=== PATIENT | male | born 1925 | race Caucasian/White ===

== ENCOUNTER 2016-04-11 00:05 | Observation (INO) | payer MEDICARE ==
[2016-04-11 00:38] LABS: Basophils % (A) 0 %; CH 31.9; CHCM 33.5; Eosinophils # (A) 0.2 k/uL (0-0.7); Eosinophils % (A) 2 %; HCT 43.7 % (39.0-53.0); HDW 2.55; HGB 14.4 gm/dL (13.0-17.5); Luc # (Auto) 0.16; Luc % (Auto) 2; Lymphocytes # (A) 0.8 k/uL (1.0-4.8); Lymphocytes % (A) 10 %; MCH 31.4 pg (25.0-35.0); MCHC 32.9 g/dL (31.0-37.0); MCV 95.6 fL (80.0-100.0); Mean Platelet Volume 7.3; Monocytes # (A) 0.6 k/uL (0-1.0); Monocytes % (A) 7 %; Neutrophils # (A) 6.8 k/uL (1.3-7.7); Neutrophils % (A) 80 %; RBC 4.57 m/uL (4.30-5.90); RDW 13.5 % (11.5-15.5); WBC 8.5 k/uL (3.8-10.6); WBC (Perox) 8.61
[2016-04-11 00:47] LABS: ALT 30 U/L (21-72); AST 30 U/L (17-59); Alkaline Phosphatase 97 U/L (38-126); Anion Gap 13 mmol/L; Blood Urea Nitrogen 14 mg/dL (9-20); Calcium 8.6 mg/dL (8.4-10.2); Carbon Dioxide 24 mmol/L (22-30); Chloride 101 mmol/L (98-107); Glucose 130 mg/dL (74-99); Non-African American GFR(MDRD) >60 (>60 ml/min/1.73 sqM); Potassium 3.6 mmol/L (3.5-5.1); Sodium 138 mmol/L (137-145); Total Bilirubin 1.4 mg/dL (0.2-1.3); Total Protein 6.4 g/dL (6.3-8.2)
[2016-04-11 00:55] LABS: INR 1.2 (<1.1); Partial Thromboplastin Time 28.1 sec (22.0-30.0); Prothrombin Time 11.5 sec (9.0-12.0)
[2016-04-11 00:59] LABS: Glucose,Whole Blood 124 mg/dL (75-99)
--- NOTE | 2016-04-11 01:05 | XR ---
EXAM: XR Chest. CLINICAL HISTORY: Reason: altered mental status TECHNIQUE: 2 portable AP upright views of the chest. COMPARISON: No relevant prior studies available. FINDINGS: Lungs: Mildly prominent indistinct pulmonary vascular markings. Together with small bilateral pleural effusions suggest the presence of mild CHF. There is probable patchy atelectasis underlying this at both lung bases. Pleural spaces: See above. Heart: Mild enlargement of the cardiomediastinal silhouette, probably a combination of cardiomegaly and aortic ectasia. The tracheal air column is slightly shifted towards the right, perhaps related to this. Mediastinum: See above. Bones: Degenerative changes. No acute fracture. IMPRESSION: 1. Mild CHF. Follow-up recommended, to ensure clearing. 2. Mild rightward deviation of the trachea which may be on the basis of vascular ectasia. If no priors, this can be reassessed at time of follow- up radiographs or by elective CT.
[2016-04-11] MEDS ORDERED: OSELTAMIVIR 75 MG CAP PO STA (04:07)
[2016-04-11] MEDS ORDERED: NALOXONE 0.4 MG/ML 1 ML VIAL IV PRN (04:11)
[2016-04-11] MEDS ORDERED: ACETAMINOPHEN TAB 325 MG TAB PO PRN (04:11)
--- NOTE | 2016-04-11 04:11 | ED ---
Altered Mental Status HPI - General Chief Complaint: Altered Mental Status Stated Complaint: Altered Mental Status Time Seen by Provider: 04/11/16 00:13 Source: EMS Mode of arrival: EMS Limitations: no limitations - History of Present Illness Initial Comments: This patient is an 89-year-old man [facility] to be evaluated for reportedly being combative. Patient reportedly was confrontational at the [facility] and had a fever. He also is reported to have had a Roche catheter in and then pulled this out, resulting in some bloody drainage from the urethra which did eventually stop. On arrival, the patient is not able to provide much history due to out appears to be some underlying dementia or possibly delirium. The patient does however deny pain or dyspnea. MD Complaint: altered mental status, confusion, other -: hour(s) Severity: severe - Related Data Home Medications Medication Instructions Recorded Confirmed Aspirin 04/11/16 Docusate [Colace] 04/11/16 Famotidine [Pepcid] 04/11/16 Folic Acid 04/11/16 Furosemide [Lasix] 04/11/16 HYDROcodone/APAP 10-325MG [[place] 04/11/16 10-325] Ipratropium-Albuterol Nebulize 04/11/16 [Duoneb 0.5 mg-3 mg/3 ml Soln] LORazepam [Ativan] 04/11/16 04/11/16 Lidocaine [Lidoderm 5% Patch] 04/11/16 Methocarbamol [Robaxin-750] 04/11/16 Metoprolol Succinate (ER) [Toprol 04/11/16 XL] Multivitamin [Men's Multi-Vitamin] 04/11/16 Nitroglycerin 04/11/16 Sennosides [Senna] 04/11/16 Simvastatin [Zocor] 04/11/16 Tamsulosin HCl [Flomax] 04/11/16 Thiamine [Vitamin B-1] 04/11/16 hydrALAZINE HCL 04/11/16 Allergies Allergy/AdvReac Type Severity Reaction Status Date / Time naproxen [From Naprosyn] Allergy Unknown Verified 04/11/16 00:41 Review of Systems ROS Statement: Those systems with pertinent positive or pertinent negative responses have been documented in the HPI. ROS Other: All systems not noted in ROS Statement are negative. Limitations: ROS unobtainable due to patients medical condition Respiratory: Reports: cough. 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 Absent: scleral icterus, conjunctival injection ENT exam: Present: mucous membranes dry Neck exam: Present: normal inspection, full ROM. Absent: tenderness, meningismus Respiratory exam: Present: rhonchi. Absent: respiratory distress, wheezes, rales, stridor Cardiovascular Exam: Present: irregular rhythm, normal heart sounds. Absent: systolic murmur, diastolic murmur, rubs, gallop GI/Abdominal exam: Present: soft. Absent: distended, tenderness, guarding, rebound, rigid Extremities exam: Present: normal inspection, normal capillary refill. Absent: pedal edema, calf tenderness Back exam: Absent: CVA tenderness (R), CVA tenderness (L) Neurological exam: Present: alert, CN II-XII intact. Absent: oriented X3 ( Patient is oriented only to person), motor sensory deficit Skin exam: Present: warm, dry, intact, normal color. Absent: rash Course Vital Signs 04/11/16 04/11/16 04/11/16 00:07 00:50 01:26 Temperature 98.1 F Pulse Rate 103 H 93 103 H Respiratory 18 18 Rate Blood Pressure 172/81 142/86 160/91 O2 Sat by Pulse 94 L 93 L 96 Oximetry 04/11/16 04/11/16 04:01 05:51 Temperature 98.4 F Pulse Rate 101 H 94 Respiratory 20 20 Rate Blood Pressure 171/110 121/69 O2 Sat by Pulse 95 95 Oximetry Medical Decision Making - Medical Decision Making This patient is an 89-year-old man [facility] status as well as being confrontational and allegedly combative. Here the patient is found to be positive for influenza. Suspect that patient does have some moderate underlying dementia and there is probably also some delirium with the fever. We'll treat patient with oseltamivir. Nursing staff did attempt to replace patient's Roche catheter but they were unable to advance the catheter and did have some bloody discharge. They did not attempt to inflate the balloon nor did they obtain any urine drainage. The patient does have a minimally elevated troponin but suspect that this is due to the fever and this be rechecked. The EKG reveals A. fib but no definite ischemic change. - Lab Data Result diagrams: 04/11/16 00:15 04/11/16 00:15 Lab Results 04/11/16 04/11/16 04/11/16 Range/Units 00:15 00:15 00:15 WBC 8.5 (3.8-10.6) k/uL RBC 4.57 (4.30-5.90) m/uL Hgb 14.4 (13.0-17.5) gm/dL Hct 43.7 (39.0-53.0) % MCV 95.6 (80.0-100.0) fL MCH 31.4 (25.0-35.0) pg MCHC 32.9 (31.0-37.0) g/dL RDW 13.5 (11.5-15.5) % Plt Count 176 (150-450) k/uL Neutrophils % 80 % Lymphocytes % 10 % Monocytes % 7 % Eosinophils % 2 % Basophils % 0 % Neutrophils # 6.8 (1.3-7.7) k/uL Lymphocytes # 0.8 L (1.0-4.8) k/uL Monocytes # 0.6 (0-1.0) k/uL Eosinophils # 0.2 (0-0.7) k/uL Basophils # 0.0 (0-0.2) k/uL PT 11.5 (9.0-12.0) sec INR 1.2 (<1.1) APTT 28.1 (22.0-30.0) sec Sodium 138 (137-145) mmol/L Potassium 3.6 (3.5-5.1) mmol/L Chloride 101 (98-107) mmol/L Carbon Dioxide 24 (22-30) mmol/L Anion Gap 13 mmol/L BUN 14 (9-20) mg/dL Creatinine 0.90 (0.66-1.25) mg/dL Est GFR (MDRD) Af Amer >60 (>60 ml/min/1.73 sqM) Est GFR (MDRD) Non-Af >60 (>60 ml/min/1.73 sqM) Glucose 130 H (74-99) mg/dL POC Glucose (mg/dL) (75-99) mg/dL POC Glu [employer] ID Calcium 8.6 (8.4-10.2) mg/dL Total Bilirubin 1.4 H (0.2-1.3) mg/dL AST 30 (17-59) U/L ALT 30 (21-72) U/L Alkaline Phosphatase 97 (38-126) U/L Troponin I (0.000-0.034) ng/mL Total Protein 6.4 (6.3-8.2) g/dL Albumin 3.4 L (3.5-5.0) g/dL Influenza Type A RNA (Not Detectd) Influenza Type B (PCR) (Not Detectd) 04/11/16 04/11/16 04/11/16 Range/Units 00:15 00:48 00:58 WBC (3.8-10.6) k/uL RBC (4.30-5.90) m/uL Hgb (13.0-17.5) gm/dL Hct (39.0-53.0) % MCV (80.0-100.0) fL MCH (25.0-35.0) pg MCHC (31.0-37.0) g/dL RDW (11.5-15.5) % Plt Count (150-450) k/uL Neutrophils % % Lymphocytes % % Monocytes % % Eosinophils % % Basophils % % Neutrophils # (1.3-7.7) k/uL Lymphocytes # (1.0-4.8) k/uL Monocytes # (0-1.0) k/uL Eosinophils # (0-0.7) k/uL Basophils # (0-0.2) k/uL PT (9.0-12.0) sec INR (<1.1) APTT (22.0-30.0) sec Sodium (137-145) mmol/L Potassium (3.5-5.1) mmol/L Chloride (98-107) mmol/L Carbon Dioxide (22-30) mmol/L Anion Gap mmol/L BUN (9-20) mg/dL Creatinine (0.66-1.25) mg/dL Est GFR (MDRD) Af Amer (>60 ml/min/1.73 sqM) Est GFR (MDRD) Non-Af (>60 ml/min/1.73 sqM) Glucose (74-99) mg/dL POC Glucose (mg/dL) 124 H (75-99) mg/dL POC Glu [employer] Project [employer] ID [place] [employer] Calcium (8.4-10.2) mg/dL Total Bilirubin (0.2-1.3) mg/dL AST (17-59) U/L ALT (21-72) U/L Alkaline Phosphatase (38-126) U/L Troponin I 0.039 H* (0.000-0.034) ng/mL Total Protein (6.3-8.2) g/dL Albumin (3.5-5.0) g/dL Influenza Type A RNA Detected A (Not Detectd) Influenza Type B (PCR) Not Detected (Not Detectd) - EKG Data -: EKG Interpreted by Ne EKG shows normal: axis (Normal), intervals (Normal), QRS complexes (Normal) Rate: normal When compared to previous EKG there are: other Interpretation: nonspecific ST-T wave changes, other (Underlying rhythm appears to be atrial fibrillation with a rate of approximately 93 BPM) Disposition Clinical Impression: Altered mental status, Influenza, Urinary retention Disposition: ADMITTED IP TO THIS HOSP Condition: Poor
[2016-04-11] MEDS ORDERED: cloNIDine HCL 0.1 MG TAB PO STA (04:25)
[2016-04-11] MEDS: LORazepam 1 MG TAB PO SCH ×2 (08:48→21:53)
--- NOTE | 2016-04-11 09:12 | P.GSCN ---
History of Present Illness Consult date: 04/11/16 History of present illness: The patient is an 89-year-old gentleman brought from the [facility] because of fever and inability to urinate. The patient is in the many large after abdominal aortic aneurysm surgery at [facility]. The patient apparently had a Roche catheter and pull it out. He apparently has had some fever up. He is disoriented. He cannot really give me much history. He is attempting to converse but is disoriented. He does know the year but struggles with the month date and location. He states that prior to his abdominal surgery he did not have significant problems urinating. He does remember pulling the catheter out but is somewhat confused. Apparently the emergency room attempted to pass a catheter but failed to do so because of the blood. He has urinated some bloody urine since being on the floor. He is not complaining of desire to urinate at present. 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 Smoking Status: Former smoker Past Alcohol Use History: Unable to Obtain Past Drug Use History: Unable to Obtain Medications and Allergies Home Medications Medication Instructions Recorded Confirmed Type Furosemide [Lasix] 20 mg PO DAILY 04/11/16 04/11/16 History HYDROcodone/APAP 5-325MG [[place] 1 tab PO TID PRN 04/11/16 04/11/16 History 5-325] Metoprolol Succinate (ER) [Toprol 50 mg PO DAILY 04/11/16 04/11/16 History Xl] Nitroglycerin Sl Tabs [Nitrostat] 0.4 mg SUBLINGUAL Q5M PRN 04/11/16 04/11/16 History Simvastatin [Zocor] 20 mg PO DAILY 04/11/16 04/11/16 History Allergies Allergy/AdvReac Type Severity Reaction Status Date / Time naproxen [From Naprosyn] Allergy Unknown Verified 04/11/16 09:02 Surgical - Exam Vital Signs Temp Pulse Resp BP Pulse Ox 98.1 F 103 H 18 172/81 94 L 04/11/16 00:07 04/11/16 00:07 04/11/16 00:07 04/11/16 00:07 04/11/16 00:07 - General well developed, well nourished, no distress - Eyes PERRL - ENT no hearing loss - Neck trachea midline - Respiratory normal expansion, normal respiratory effort - Cardiovascular Rhythm: regular - Abdomen Abdomen: soft, non tender - Genitourinary The penis is uncircumcised. There is some blood on his shorts. Testes epididymis unremarkable. Sphincter tone is good. Prostate is 30 g and benign. There is hard stool in the rectum. - Neurologic normal coordination, disoriented, confused - Psychiatric speech is normal Results - Labs 04/11/16 00:15 04/11/16 00:15 Abnormal Lab Results - Last 24 Hours (Table) 04/11/16 Range/Units 06:28 Troponin I 0.192 H* (0.000-0.034) ng/mL Assessment and Plan Plan: Impression: Status post catheter removal with balloon inflated traumati prostatic urethral tear. Possible urinary retention. This orientation indeterminate cause. Status post aortic surgical repair. Recommendations: I will obtain a bladder scan to see how well his bladder is emptying. If he is emptying reasonably well I do not recommend reinserting a Roche catheter because with his disorientation he will possibly pull it out again. We'll see how this progresses.
[2016-04-11] MEDS: FAMOTIDINE 20 MG TAB PO SCH ×2 (12:07→21:52)
[2016-04-11] MEDS: hydrALAZINE HCL 25 MG TAB PO SCH (12:07)
[2016-04-11] MEDS: THIAMINE 100 MG TAB PO SCH (12:08)
[2016-04-11] MEDS: METOPROLOL SUCCINATE (ER) 50 MG TAB.ER.24H PO SCH (12:08)
[2016-04-11] MEDS: TAMSULOSIN 0.4 MG CAP.ER.24H PO SCH (12:08)
[2016-04-11] MEDS ORDERED: NITROGLYCERIN SL TABS 0.4 MG TAB SUBLINGUAL PRN (12:21)
[2016-04-11] MEDS ORDERED: METOPROLOL SUCCINATE (ER) 50 MG TAB.ER.24H PO SCH (12:30)
[2016-04-11 12:54] VITALS: BMI 26.6
[2016-04-11] MEDS: ATORVASTATIN 10 MG TAB PO SCH (15:55)
[2016-04-11] MEDS: FUROSEMIDE 20 MG TAB PO SCH (15:55)
[2016-04-11 17:17] LABS: Glucose,Whole Blood 112 mg/dL (75-99)
[2016-04-11] MEDS ORDERED: QUEtiapine 25 MG TAB PO SCH (21:00)
--- NOTE | 2016-04-11 21:08 | HP ---
DATE OF ADMISSION: 04/11/2016 PRESENTING COMPLAINT: Fever. HISTORY OF PRESENTING COMPLAINT: This is an 89-year-old patient who was transferred here from [facility]. The patient was there for about 4 hours and became somewhat agitated, pulled out his Roche, was found to be febrile and hence he sent down here. Patient was transferred from [facility] to [facility] on 04/04/2016. The patient had fallen at home and had right-sided rib fractures during work-up and noted that he had a AAA increased in size from 5 to 6.3 cm and also the patient had right inguinal hernia and acute urinary retention as well as pneumonia. Patient has been having increasing bilateral leg weakness for the past few months. He had endograft repair and was discharged to [facility] for rehab. 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 The patient also has history of atrial fibrillation, coronary artery disease and cardiac cath with stent, patient himself is not able to give much of a history, can answer some questions. Patient also was found to be positive for influenza. Does have does have a cough per the nursing and somewhat baseline confused. REVIEW OF SYSTEMS: The patient does not give much of a history. PAST MEDICAL HISTORY: History of atrial fibrillation, coronary artery disease, decreased vision in left eye, hyperlipidemia, hypertension, benign prostatic hypertrophy, triple A repair, macular degeneration, benign prostatic hypertrophy, diverticulosis. PAST SURGICAL HISTORY: Back surgery, cardiac catheterization with stent, total right hip arthroplasty, left carotid endarterectomy, cardiac stent to the LAD, bilateral cataract removal, left ear procedure for wax buildup, back surgery. SOCIAL HISTORY: Patient drinks 2 beers a day. ( ) in the past and has been smoking 1/2 pack a day since 1944. Family history of NM and congestive heart failure. HOME MEDICATIONS: 1. Zocor 20 mg a day. 2. Nitrostat 0.4 sublingual q.5 p.r.n. 3. Toprol-XL 50 mg daily, 4. [place] 5 1 tablets p.o. t.i.d. p.r.n. 5. Lasix 20 mg daily. ALLERGIES TO NAPROXEN. On examination, temperature 98.1, pulse 103, respiratory rate 18, blood pressure 142/86, pulse ox 93% on 2 liters, 94% on room air. GENERAL APPEARANCE: Well built, lying in bed, not in distress, occasionally coughing. EYES: Pupils equal. Conjunctivae normal. HEENT: External appearance of nose and ears normal. Oral cavity normal. NECK: JVD not raised. Mass not palpable. RESPIRATORY: Effort normal. Decreased breath sounds. LUNGS: Decreased breath sounds. CARDIOVASCULAR: First and second sounds normal. No edema. ABDOMEN: Nontender. Liver and spleen not palpable. LYMPHATIC: No lymph nodes palpable in the neck or axillae. PSYCHIATRY: Patient does answer some simple questions. INVESTIGATIONS: White count 8.5, hemoglobin 14.4. Potassium 3.6. Troponin 0.039, 0.192, 0.199, Influenza type A RNA is positive. Chest x-ray shows some cardiomegaly, some nonspecific findings maybe some patchy atelectasis. EKG atrial fibrillation, rate controlled. ASSESSMENT: 1. Acute influenza A with pneumonitis. 2. Persistent atrial fibrillation, rate controlled 3. Coronary artery disease. 4. Hyperlipidemia. 5. Essential hypertension. 6. Probably acute delirium from underlying infection and medical conditions. 7. Benign prostatic hypertrophy. 8. Chronic diverticulosis. 9. Chronic obstructive pulmonary disease in an ex-smoker. 10. Recent abdominal aortic aneurysm repair and right inguinal hernia repair. 11. Acute urinary retention. The patient had a Roche catheter that he pulled out with traumatic hematuria. Seen by Dr. Jacinto, not to be placed right now. Patient has made urine since then. PLAN: Home medications are resumed. Patient is put on Tamiflu. Will add Seroquel to improve patient's sleep cycle, Lovenox for DVT prophylaxis. Get physical therapy involved.
[2016-04-11] MEDS: OSELTAMIVIR 75 MG CAP PO SCH (21:52)
[2016-04-11] MEDS: HYDROcodone/APAP 5-325MG 1 EACH TAB PO PRN (22:27)
[2016-04-12 06:51] LABS: Basophils % (A) 1 %; CH 31.1; CHCM 31.4; Eosinophils # (A) 0.3 k/uL (0-0.7); Eosinophils % (A) 4 %; HCT 40.2 % (39.0-53.0); HDW 2.47; HGB 12.7 gm/dL (13.0-17.5); Hypochromasia Slight; Luc # (Auto) 0.13; Luc % (Auto) 2; Lymphocytes # (A) 1.4 k/uL (1.0-4.8); Lymphocytes % (A) 18 %; MCH 31.5 pg (25.0-35.0); MCHC 31.6 g/dL (31.0-37.0); MCV 99.6 fL (80.0-100.0); Mean Platelet Volume 7.4; Monocytes # (A) 0.7 k/uL (0-1.0); Monocytes % (A) 8 %; Neutrophils # (A) 5.3 k/uL (1.3-7.7); Neutrophils % (A) 68 %; RBC 4.03 m/uL (4.30-5.90); RDW 13.3 % (11.5-15.5); WBC 7.9 k/uL (3.8-10.6); WBC (Perox) 8.46
[2016-04-12 07:03] LABS: Anion Gap 11 mmol/L; Blood Urea Nitrogen 14 mg/dL (9-20); Calcium 8.6 mg/dL (8.4-10.2); Carbon Dioxide 25 mmol/L (22-30); Chloride 105 mmol/L (98-107); Glucose 83 mg/dL (74-99); Non-African American GFR(MDRD) >60 (>60 ml/min/1.73 sqM); Potassium 3.6 mmol/L (3.5-5.1); Sodium 141 mmol/L (137-145)
[2016-04-12] MEDS: FAMOTIDINE 20 MG TAB PO SCH ×2 (09:19→21:51)
[2016-04-12] MEDS: hydrALAZINE HCL 25 MG TAB PO SCH (09:19)
[2016-04-12] MEDS: OSELTAMIVIR 75 MG CAP PO SCH ×2 (09:19→21:51)
[2016-04-12] MEDS: TAMSULOSIN 0.4 MG CAP.ER.24H PO SCH (09:19)
[2016-04-12] MEDS: METOPROLOL SUCCINATE (ER) 50 MG TAB.ER.24H PO SCH (09:19)
[2016-04-12] MEDS: FUROSEMIDE 20 MG TAB PO SCH (09:20)
[2016-04-12] MEDS: ATORVASTATIN 10 MG TAB PO SCH (09:20)
[2016-04-12] MEDS: THIAMINE 100 MG TAB PO SCH (09:21)
[2016-04-12] MEDS: QUEtiapine 25 MG TAB PO SCH (09:21)
[2016-04-12] MEDS: LORazepam 1 MG TAB PO SCH (09:27)
[2016-04-12] MEDS: HYDROcodone/APAP 5-325MG 1 EACH TAB PO PRN (09:27)
[2016-04-12] MEDS ORDERED: LORazepam 0.5 MG TAB PO PRN (16:24)
--- NOTE | 2016-04-12 19:59 | PN ---
DATE OF SERVICE: 04/12/2016 PRESENTING COMPLAINT: Influenza A. INTERVAL HISTORY: This is a patient who presented with acute delirium and influenza A pneumonitis. Patient was awake most of the night but then went to sleep this morning; rather lethargic when I came to see him this morning. Discussed the case with the nurse. Review of systems could not be done, as patient was rather somnolent. Current medications are reviewed that include Tamiflu. On examination, afebrile, temperature 97.4, pulse 92, respiration 18, blood pressure 109/65, pulse ox 97% on 2 L. GENERAL APPEARANCE: Lying in bed. Somnolent. EYES: Pupils equal. Conjunctivae normal. NECK: JVD unable to assess. Mass not palpable. RESPIRATORY: Effort increased. LUNGS: Diminished breath sounds. CARDIOVASCULAR: First and second sounds normal. No edema. ABDOMEN: Soft, nontender. Liver and spleen not palpable. NEUROLOGICAL: Patient is somnolent but arousable. INVESTIGATIONS: White count 7.9, hemoglobin 12.7, potassium 3.6. ASSESSMENT: 1. Acute influenza A pneumonitis. 2. Acute delirium from above. 3. Persistent atrial fibrillation, rate controlled. 4. Coronary artery disease. 5. Hyperlipidemia. 6. Essential hypertension. 7. Benign prostatic hypertrophy. 8. Chronic diverticulosis. 9. Chronic obstructive pulmonary disease in an ex-smoker. 10. Recent abdominal aortic aneurysm repair with right inguinal hernia. 11. Acute urinary retention. Patient had a Roche catheter that he pulled out with traumatic hematuria. 12. Troponin leak from hemodynamic mismatch. PLAN: Continue current medication and treatment plan. I told the nurse to maintain his sleep cycle. Will follow.
[2016-04-12] MEDS: QUEtiapine 50 MG TAB PO SCH (21:51)
[2016-04-13] MEDS: TAMSULOSIN 0.4 MG CAP.ER.24H PO SCH (08:29)
[2016-04-13] MEDS: OSELTAMIVIR 75 MG CAP PO SCH ×2 (08:29→20:13)
[2016-04-13] MEDS: THIAMINE 100 MG TAB PO SCH (08:30)
[2016-04-13] MEDS: QUEtiapine 25 MG TAB PO SCH (08:30)
[2016-04-13] MEDS: FAMOTIDINE 20 MG TAB PO SCH ×2 (08:30→20:13)
[2016-04-13] MEDS: METOPROLOL SUCCINATE (ER) 50 MG TAB.ER.24H PO SCH (08:30)
[2016-04-13] MEDS: ATORVASTATIN 10 MG TAB PO SCH (08:30)
--- NOTE | 2016-04-13 18:54 | PN ---
DATE OF SERVICE: 04/13/2016 PRESENTING COMPLAINT: Influenza A causing delirium. INTERVAL HISTORY: This patient with ( ) presented with acute delirium, influenza A pneumonitis. Patient dose of Seroquel was adjusted. The patient slept well last night, did actually eat well this morning. Far more comprehending, comfortable, lying in bed actually talking. Review systems done for constitutional, cardiovascular, GI, pulmonary; relevant findings as above. Current medications are reviewed that include Tamiflu and Seroquel. On examination, temperature 97.1, pulse 96, respiration 18, blood pressure 123/67, pulse ox 97% on 2 liters. GENERAL APPEARANCE: Lying in bed far more awake, talking, eyes pupils equal, conjunctivae normal. NECK: JVD not raised. Mass not palpable. RESPIRATORY: Effort normal. LUNGS: Diminished breath sounds. CARDIOVASCULAR: First and second sounds normal. No edema. ABDOMEN: Soft, nontender. Liver and spleen not palpable. PSYCHIATRY: Patient knows he is in the hospital, cannot recall the name. Still a little bit confused but much better than yesterday. INVESTIGATIONS: White count 7.9, hemoglobin 12.7, potassium 3.6. ASSESSMENT: 1. Acute influenza A pneumonitis with some clinical improvement. 2. Acute delirium from pneumonitis with clinical improvement. 3. Persistent atrial fibrillation, rate controlled. 4. Coronary artery disease. 5. Troponin leak probably from ( ) not acute coronary syndrome. 6. Hyperlipidemia. 7. Essential hypertension. 8. Benign prostatic hypertrophy. 9. Chronic diverticulosis. 10. Chronic obstructive pulmonary disease in an ex-smoker. 11. Recent abdominal aortic aneurysm with right inguinal hernia repair. 12. Acute urinary retention. Patient Roche catheter that he had pulled out, traumatic. Hematuria patient now making urine. PLAN: Continue current medications and treatment plan. The patient slowly improving. We will keep a close eye and follow.
[2016-04-13] MEDS: QUEtiapine 50 MG TAB PO SCH (20:13)
[2016-04-14] MEDS: QUEtiapine 25 MG TAB PO SCH (08:09)
[2016-04-14] MEDS: THIAMINE 100 MG TAB PO SCH (08:09)
[2016-04-14] MEDS: OSELTAMIVIR 75 MG CAP PO SCH ×2 (08:09→20:09)
[2016-04-14] MEDS: FAMOTIDINE 20 MG TAB PO SCH ×2 (08:09→20:09)
[2016-04-14] MEDS: TAMSULOSIN 0.4 MG CAP.ER.24H PO SCH (08:09)
[2016-04-14] MEDS: ATORVASTATIN 10 MG TAB PO SCH (08:10)
[2016-04-14] MEDS: METOPROLOL SUCCINATE (ER) 50 MG TAB.ER.24H PO SCH (08:10)
[2016-04-14] MEDS: QUEtiapine 50 MG TAB PO SCH (20:09)
[2016-04-15] MEDS: HYDROcodone/APAP 5-325MG 1 EACH TAB PO PRN (01:18)
[2016-04-15] MEDS: THIAMINE 100 MG TAB PO SCH (08:18)
[2016-04-15] MEDS: ATORVASTATIN 10 MG TAB PO SCH (08:19)
[2016-04-15] MEDS: METOPROLOL SUCCINATE (ER) 50 MG TAB.ER.24H PO SCH (08:19)
[2016-04-15] MEDS: QUEtiapine 25 MG TAB PO SCH (08:19)
[2016-04-15] MEDS: OSELTAMIVIR 75 MG CAP PO SCH ×2 (08:19→20:13)
[2016-04-15] MEDS: TAMSULOSIN 0.4 MG CAP.ER.24H PO SCH (08:19)
[2016-04-15] MEDS: FAMOTIDINE 20 MG TAB PO SCH ×2 (08:19→20:13)
--- NOTE | 2016-04-15 12:38 | PN ---
DATE OF SERVICE: 04/14/2016 PRESENTING COMPLAINT: Influenza A causing delirium. INTERVAL HISTORY: This patient seen by me yesterday on 04/14/2016. Patient presented with influenza pneumonitis and acute delirium, which is greatly improved. Sleep cycle is being introduced and patient is doing well, tolerated diet. Answering questions, more comfortable. Review of systems done for constitutional, cardiovascular, GI, pulmonary; relevant findings as above. Current medications include Tamiflu and Seroquel. On examination, temperature 97.5, pulse 100, respiration 18, blood pressure 120/72, pulse ox 94% on 2 liters. GENERAL APPEARANCE: Propped up in bed, comfortable, awake. EYES: Pupils equal. Conjunctivae normal. NECK: JVD not raised. Mass not palpable. RESPIRATORY: Effort normal. LUNGS: Diminished breath sounds. CARDIOVASCULAR: First and second sounds normal. No edema. ABDOMEN: Soft, nontender. Liver and spleen not palpable. PSYCHIATRY: Awake, answering simple questions. INVESTIGATIONS: No blood work from today. ASSESSMENT: 1. Acute influenza pneumonitis with clinical improvement. 2. Acute delirium from pneumonitis with clinical improvement. 3. Persistent atrial fibrillation, rate controlled. 4. Coronary artery disease. 5. Troponin leak from hemodynamic instability, not acute coronary syndrome. 6. Hyperlipidemia. 7. Essential hypertension. 8. Benign prostatic hypertrophy. 9. Chronic diverticulosis. 10. Chronic obstructive pulmonary disease in an ex-smoker. 11. Recent abdominal aortic aneurysm with right inguinal hernia repair. 12. Acute urinary retention. Patient had pulled out his Roche catheter when he was delirious. PLAN: Overall doing much better. Continue current medication and treatment plan. Will follow.
--- NOTE | 2016-04-15 17:32 | PN ---
DATE OF SERVICE: 04/15/2016 PRESENTING COMPLAINT: Influenza A causing delirium. INTERVAL HISTORY: This patient presented with acute influenza pneumonitis with acute delirium, which is greatly improved with Seroquel, tolerating a diet. Lying in bed, tired appearing. Review of systems done for constitutional, cardiovascular, GI, pulmonary; relevant findings as above. Current medications are reviewed that include Seroquel 50 at night and 12.5 in the morning. On examination, temperature 98, pulse 100, respiration 18, blood pressure 144/83, pulse ox 96% on 2 liters. GENERAL APPEARANCE: Lying in bed, comfortable, awake. EYES: Pupils equal. Conjunctivae normal. NECK: JVD not raised. Mass not palpable. RESPIRATORY: Effort normal. LUNGS: Diminished breath sounds. CARDIOVASCULAR: First and second sounds normal. No edema. ABDOMEN: Soft, nontender. Liver and spleen not palpable. PSYCHIATRY: Awake, answering simple questions. INVESTIGATIONS: No blood work from today. ASSESSMENT: 1. Acute influenza pneumonitis with clinical improvement, type A. 2. Acute delirium from pneumonitis with clinical improvement. 3. Persistent atrial fibrillation, rate controlled. 4. Coronary artery disease. 5. Troponin leak from hemodynamic instability, not acute coronary syndrome. 6. Hyperlipidemia. 7. Essential hypertension. 8. Benign prostatic hypertrophy. 9. Chronic diverticular. 10. Chronic obstructive pulmonary disease in an ex-smoker. 11. Recent abdominal aortic aneurysm with a right inguinal hernia repair. 12. Acute urinary retention. Patient had pulled out his Roche catheter. PLAN: At this point, will discontinue the morning dose of Seroquel and cutback on the evening dose of Seroquel to 25. Keep a close eye. Check with the nurse about Roche catheter per Urology.
[2016-04-15 19:47] LABS: Appearance,Urine Bloody (Clear); Particle Count 61694; RBC,Urine >182 /hpf (0-5); WBC,Urine 85 /hpf (0-5)
[2016-04-15 19:50] LABS: UA Billing (MACRO vs. MICRO) MICRO
[2016-04-15] MEDS ORDERED: QUEtiapine 25 MG TAB PO SCH (21:00)
[2016-04-16 07:28] VITALS: BP 166/87; PULSE 80; RESP 16; TEMP 97.1
[2016-04-16] MEDS: TAMSULOSIN 0.4 MG CAP.ER.24H PO SCH (09:17)
[2016-04-16] MEDS: METOPROLOL SUCCINATE (ER) 50 MG TAB.ER.24H PO SCH (09:17)
[2016-04-16] MEDS: FAMOTIDINE 20 MG TAB PO SCH (09:17)
[2016-04-16] MEDS: ATORVASTATIN 10 MG TAB PO SCH (09:17)
[2016-04-16] MEDS: THIAMINE 100 MG TAB PO SCH (09:18)
--- NOTE | 2016-04-16 15:21 | DS ---
DATE OF ADMISSION: 04/11/2016 DATE OF DISCHARGE: 04/16/2016 FINAL DIAGNOSES: 1. Acute influenza pneumonitis, type A, present on admission causing acute delirium. 2. Persistent atrial fibrillation, rate controlled. 3. Coronary artery disease. 4. Hyperlipidemia. 5. Essential hypertension. 6. Benign prostatic hypertrophy. 7. Chronic obstructive pulmonary disease in an ex-smoker. 8. Recent abdominal aortic aneurysm with a right inguinal hernia repair. 9. Acute urinary retention. HOSPITAL COURSE: This is a patient who was just admitted to rehab following the above surgery, developed Influenza A, became delirious, was admitted for the same. Treated with Tamiflu, doing much better. Patient had a small dose of Seroquel, doing really well with the current medication. Patient having some urinary retention and Roche was placed. DC Roche was done this morning. ( ) urinary retention. Seen by Dr. Jacinto. Final determination be done that patient will make urine on his own. On examination, lungs fair entry. CARDIOVASCULAR: First and second sounds normal. DISCHARGE MEDICATIONS: 1. Toprol-XL 50 mg p.o. daily. 2. Nitrostat 0.4 sublingual q.5 p.r.n. 3. Zocor 20 mg p.o. daily. 4. [place] 5 one tablet p.o. t.i.d. p.r.n. 5. Seroquel 25 mg p.o. q.h.s. DISPOSITION: [facility]. Follow up with Dr. Bender 04/17/2016. NOTE: Because the patient is a high risk of fall, anticoagulation has not been added, but if patient remains to be supervised, than this can be addressed yet again.
== END 2016-04-16 18:21 ==
LOC: EC 00:05 → 6SEL 04:11 → 4MS4W 04-15 17:13
PROVIDERS: ADMIT Hospitalist; ATTEND Hospitalist
DX: J44.0 Chronic obstructive pulmonary disease with (acute) lower respiratory infection (principal); J10.00 Influenza due to other identified influenza virus with unspecified type of pneumonia; J10.1 Influenza due to other identified influenza virus with other respiratory manifestations; F03.90 Unspecified dementia, unspecified severity, without behavioral disturbance, psychotic disturbance, mood disturbance, and anxiety; I48.1 Persistent atrial fibrillation; I25.10 Atherosclerotic heart disease of native coronary artery without angina pectoris; E78.5 Hyperlipidemia, unspecified; I10 Essential (primary) hypertension; N40.1 Benign prostatic hyperplasia with lower urinary tract symptoms; R33.8 Other retention of urine; R53.1 Weakness; Z95.5 Presence of coronary angioplasty implant and graft; Z98.890 Other specified postprocedural states; Z79.82 Long term (current) use of aspirin; Z79.899 Other long term (current) drug therapy; Z88.8 Allergy status to other drugs, medicaments and biological substances; G89.28 Other chronic postprocedural pain; M54.5 Low back pain; K57.90 Diverticulosis of intestine, part unspecified, without perforation or abscess without bleeding; Z86.79 Personal history of other diseases of the circulatory system; F17.200 Nicotine dependence, unspecified, uncomplicated; R31.9 Hematuria, unspecified
CPT/HCPCS: 99285 ×2; 36415; 94760; 93005; 97116; 97162; 97166; 80053; 80048; 84484; 85025 ×2; 85610; 85730; 81001; 87502; 71010; G0378 ×7